=== PATIENT | female | born 2005 | race Caucasian/White ===

== ENCOUNTER 2024-09-29 06:19 | Emergency (ER) | payer BC, SELFPAY ==
[2024-09-29 06:20] VITALS: BP 126/89; PULSE 67; RESP 67; TEMP 36.7; O2SAT 100; BMI 32.5
--- NOTE | 2024-09-29 06:26 | CT_ITS ---
FINAL REPORT TECHNIQUE: After the administration of oral and intravenous contrast, axial images were obtained through the abdomen and pelvis by computed tomography. The study was performed with techniques to keep radiation dose as low as reasonably achievable, (ALARA). Individual dose reduction techniques using automated exposure control or adjustment of mA and/or kV according to the patient's size were employed. CLINICAL HISTORY: low abd and low back pain COMPARISON: None FINDINGS: Abdomen: The lung bases are clear. The liver parenchyma is homogeneous. The gallbladder is present. The spleen, pancreas, and adrenals appear unremarkable. There is mild to moderate right hydronephrosis, with a 2 mm obstructing stone at the right UPJ. The aorta is normal in caliber. There is no free fluid or adenopathy. Pelvis: The appendix is not identified. The urinary bladder is incompletely distended. The uterus is anteverted. Small ovarian cysts or follicles are noted. There is no free fluid or adenopathy. IMPRESSION: Mild to moderate right hydronephrosis with a 2 mm obstructing stone at the right UPJ. Reviewed, Interpreted and Dictated by Murali Knott MD Transcribed by Navya Valenzuela Authenticated and [facility]
--- NOTE | 2024-09-29 06:31 | HMH.EDGENADL ---
Discharge Plan Disposition Patient Disposition: Home, Self-Care Prescriptions Prescriptions: New ibuprofen 800 mg tablet 800 mg PO TID PRN (Reason: pain) 7 Days Qty: 20 0RF hydrocodone-acetaminophen 5-325 mg tablet 1 tab PO Q6H PRN (Reason: pain) 3 Days Qty: 12 0RF tamsulosin [Flomax] 0.4 mg capsule 0.4 mg PO DAILY 7 Days Qty: 7 0RF ondansetron 4 mg tablet,disintegrating 4 mg PO Q6H PRN (Reason: nausea and vomiting) 5 Days Qty: 20 0RF Referrals Follow up/Referrals: Iban Baeza MD [Primary Care Provider] - See instructions Activity Restrictions/Add. Instructions Additional Instructions/Restrictions: You have a 2 mm right sided proximal and obstructing kidney stone this is most likely a pass given size. No evidence of an infection or sepsis. Return with refractory pain or high fevers you may follow-up with urology if you would like but that should pass on its own. Clinical Impressions Clinical Impression: Hydronephrosis concurrent with and due to calculi of kidney and ureter, Lower abdominal pain, Low back pain, Nausea & vomiting Print Language Print Language: Togolese Discharge ED Provider: Bing Berrios General Adult HPI <Bing Berrios MD - Last Filed: 09/29/24 07:02> General Chief complaint: Nausea/Vomiting/Diarrhea Stated complaint: abd, back pain, nausea, vomiting Time Seen by Provider: 09/29/24 06:21 Mode of Arrival: Ambulatory Source of Information: Patient Limitations: No Limitations Description of Symptoms (Recalled from ER Triage Doc. by RN): PT C/O NV, LOWER ABD PAIN STARTING AT 0430 THIS AM. History of Present Illness HPI narrative: 19-year-old female presents to the ER with 2 hours of lower abdominal and lower back pain as well as nausea and vomiting. Symptoms started around 430 this morning. She denies fevers, chills, numbness, tingling, weakness, dysuria, hematuria. She has not yet passed urine this morning. Mom and patient report a family history of kidney stones but patient does not know of ever having 1. Patient reports no diarrhea. She reports that her pain is in the very low abdomen and indicates in the suprapubic area, she also indicates to her very low back, bilateral. She denies having pain affecting 1 side more than the other. Reportedly mom gave a pain pill at home prior to arrival but patient vomited this up. Related Data Previous Rx's ?Medication ?Instructions ?Recorded hydrocodone 5 mg-acetaminophen 325 1 tab PO Q6H PRN pain 3 days #12 09/29/24 mg tablet tabs ibuprofen 800 mg tablet 800 mg PO TID PRN pain 7 days #20 09/29/24 tabs ondansetron 4 mg disintegrating 4 mg PO Q6H PRN nausea and 09/29/24 tablet vomiting 5 days #20 tabs tamsulosin 0.4 mg capsule (Flomax) 0.4 mg PO DAILY 7 days #7 caps 09/29/24 Allergies Allergy/AdvReac Type Severity Reaction Status Date / Time No Known Allergies Allergy Verified 09/29/24 06:32 [facility] <Bing Berrios MD - Last Filed: 09/29/24 07:02> [facility] Disclaimer: The information contained in this section may have been updated after the patient was seen, as this information can be updated by other users. Social History (Updated 09/29/24 @ 07:02 by Bing Berrios MD) Smoking Status: Never smoker alcohol intake: never current occupational status: other Travel in the last 8 weeks: None Have you lived/traveled outside [place] in past 30 days?: No Contact w/someone who lives/traveled outside [place] past 30 days?: No Exposure to someone with infectious disease in past 14 days?: No Do you have a fever (greater than 100.4 F or 38 C)?: No Have you tested positive for COVID-19: No Exposed to someone with COVID-19 in past 14 days?: No Do you have a sore throat?: No Do you have a cough?: No Do you have any weakness?: No Do you have any diarrhea?: No Are you experiencing any unusual bleeding?: No Do you have any muscle aches/pain?: Yes Do you have any abdominal pain?: Yes Are you experiencing loss of taste or smell?: No <Bing Berrios MD - Last Filed: 09/29/24 07:02> ROS Obtained: Yes Systems reviewed as appropriate & no additional complaints except as documented Per HPI Physical Exam <Bing Berrios MD - Last Filed: 09/29/24 07:02> General General appearance: alert and in no apparent distress Comment: Appears uncomfortable but not in distress, nontoxic-appearing Head Head exam: atraumatic and normocephalic Eye Eye exam: Present PERRL and EOMI ENT ENT exam: Present mucous membranes moist Neck Neck exam: Present normal inspection and full ROM Chest Chest inspection: Present symmetric chest wall rise Respiratory Respiratory exam: Present normal lung sounds bilaterally; Absent respiratory distress, wheezes or stridor Cardiovascular Cardiovascular exam: Present regular rate and normal rhythm Abdominal Exam Abdominal exam: Present soft; Absent distention, tenderness, guarding or rebound Comment: Patient reports suprapubic pain but this is not elicited or worsened with palpation Extremities Exam Extremities exam: Present full ROM Back Exam Back exam: Absent CVA tenderness (R) or CVA tenderness (L) Neurological Exam Neurological exam: Present alert and oriented X3; Absent motor sensory deficit Psychiatric Psychiatric exam: Present normal affect and normal mood Skin Skin exam: Present warm and dry Medical Decision Making <Bing Berrios MD - Last Filed: 09/29/24 07:02> Medical Records Screening: Per USPSTF and CDC recommendations, given the prevalence of disease in our region, it is our hospital?s policy to screen for HIV and viral Hepatitis for all patients aged 18 and over and those with ongoing risk factors. John Inquiry Pt receiving controlled substance: No Vital Signs: 09/29/24 06:20 09/29/24 07:40 09/29/24 07:59 Temperature 98.0 F Temperature Source Oral Pulse Rate 79 86 Pulse Rate [Apical] 67 Respiratory Rate 67 H Blood Pressure 118/74 112/77 Blood Pressure [Right Arm] 126/89 Blood Pressure Mean [Right Arm] 101 02 Sat by Pulse Oximetry 100 94 L 95 Oxygen Delivery Method Room Air Room Air 09/29/24 08:30 Temperature Temperature Source Pulse Rate 74 Pulse Rate [Apical] Respiratory Rate Blood Pressure 118/78 Blood Pressure [Right Arm] Blood Pressure Mean [Right Arm] 02 Sat by Pulse Oximetry 100 Oxygen Delivery Method Room Air Lab Data Lab Results 09/29/24 06:35: WBC 13.4 H, RBC 5.17, Hgb 15.8, Hct 46.0, MCV 89.0, MCH 30.6, MCHC 34.3, RDW 11.7, Plt Count 325, MPV 12.1 H, Neut % (Auto) 68.5, Lymph % (Auto) 23.0, [place] % (Auto) 6.8, Eos % (Auto) 1.0, Baso % (Auto) 0.4, Neut # (Auto) 9.2 H, Lymph # (Auto) 3.1, [place] # (Auto) 0.9, Eos # (Auto) 0.1, Baso # (Auto) 0.1, PT 10.4, INR 0.94, Sodium 141, Potassium 3.8, Chloride 102, Carbon Dioxide 28, Anion Gap 14.8, BUN 18 H, Creatinine 1.10 H, Estimated Creat Clear 129, Estimated GFR 63, Est GFR ( Amer) 77, Glucose 136 H, Calcium 9.5, Total Bilirubin 0.6, AST 33, ALT 28, Alkaline Phosphatase 65, Total Protein 7.4, Albumin 4.7, Globulin 2.7, Albumin/Globulin Ratio 1.7, Lipase 70, Serum HCG, Qual Negative 09/29/24 08:04: Urine Color Yellow, Urine Appearance Clear, Urine pH 7.0, Ur Specific [place] 1.010, Urine Protein Negative, Urine Glucose (UA) Negative, Urine Ketones Negative, Urine Blood 3+ A, Urine Nitrate Negative, Urine Bilirubin Negative, Urine Urobilinogen 0.2, Ur Leukocyte Esterase Negative 09/29/24 06:35 09/29/24 06:35 Orders (Tests/Meds): ED MEDICATIONS Generic Name Dose Route Start Last Admin Trade Name Freq PRN Reason Stop Dose Admin Morphine Sulfate 4 mg 09/29/24 06:45 Morphine 4mg/Ml Syringe IV 10/29/24 06:44 Q2HP PRN Severe Pain (7-10) Discontinued Medications Generic Name Dose Route Start Last Admin Trade Name Freq PRN Reason Stop Dose Admin Acetaminophen 1,000 mg 09/29/24 06:35 09/29/24 06:40 Acetaminophen 1,000mg/100ml Vial IV 09/29/24 06:36 1,000 mg ONCE ONE Administration Lactated Ringer's 1,000 mls @ 999 mls/hr 09/29/24 06:26 09/29/24 06:40 Lactated Ringer's 1000 Ml Bag IV 09/29/24 07:26 999 mls/hr .Q1H1M ONE Administration Iopamidol 75 ml 09/29/24 07:19 09/29/24 07:20 Iopamidol-370 (76%);100ml Bottle IV 09/29/24 07:20 75 ml ONCE ONE Administration Ketorolac Tromethamine 30 mg 09/29/24 06:26 09/29/24 06:40 Ketorolac 30mg/Ml Vial IV 09/29/24 06:27 30 mg ONCE ONE Administration Ondansetron HCl 4 mg 09/29/24 06:35 09/29/24 06:40 Ondansetron 4mg/2ml Vial IV 09/29/24 06:36 4 mg ONCE ONE Administration Sodium Chloride 10 ml 09/29/24 07:19 09/29/24 07:20 Sodium Chloride 0.9% 10ml Syr (Rad Only) IV 09/29/24 07:20 10 ml ONCE ONE Administration ORDERS Category Date Time Status CT abdomen pelvis w con Stat Cat Scan 09/29/24 06:26 Taken Complete Blood Count Auto Diff Stat Lab 09/29/24 06:35 Completed Comprehensive Metabolic Panel Stat Lab 09/29/24 06:35 Completed HCG Qualitative, Serum Stat Lab 09/29/24 06:35 Completed Lipase Stat Lab 09/29/24 06:35 Completed Prothrombin Time INR Stat Lab 09/29/24 06:35 Completed Urinalysis and Microscopic Stat Lab 09/29/24 08:04 Results Medical Decision Narrative: In summary, this 19-year-old female with no known chronic medical conditions presents to the emergency department today with low back pain, low abdominal pain, nausea, vomiting for the last 2 hours. On initial evaluation patient is hemodynamically stable, afebrile, no tenderness is elicited on exam of the abdomen, no CVA tenderness, unable to reproduce patient's pain, she appears uncomfortable but nontoxic, remainder of exam benign. Differential diagnosis includes but is not limited to viral syndrome, appendicitis, nephrolithiasis, ureterolithiasis, hydronephrosis, UTI, pyelonephritis, colitis, torsion, . Torsion is considered slightly less likely right now since patient has midline pain and a nontender abdomen. Will workup other potential pathology first. Based on these concerns, I ordered serum labs, test, urine studies, CT imaging. Patient initially received Toradol, Tylenol, IV fluids, Zofran for symptomatic management. PRN morphine ordered if conservative treatment is not effective. She attempted to urinate on arrival but was unable to void. Patient is going to receive IV fluids and try again. Labs reviewed by me demonstrate leukocytosis WBC 13.4 with neutrophil predominance which increases suspicion for possible infectious etiology. No anemia, platelets normal. CMP with mild kidney dysfunction, BUN 18, creatinine 1.1. No actionable electrolyte abnormalities. Patient is already receiving IV fluids. Lipase normal. Patient handed off to Dr. Simon in stable condition pending further serum labs, urine, and imaging analysis. <Devon Simon MD - Last Filed: 09/29/24 08:58> Vital Signs: 09/29/24 06:20 09/29/24 07:40 09/29/24 07:59 Temperature 98.0 F Temperature Source Oral Pulse Rate 79 86 Pulse Rate [Apical] 67 Respiratory Rate 67 H Blood Pressure 118/74 112/77 Blood Pressure [Right Arm] 126/89 Blood Pressure Mean [Right Arm] 101 02 Sat by Pulse Oximetry 100 94 L 95 Oxygen Delivery Method Room Air Room Air 09/29/24 08:30 Temperature Temperature Source Pulse Rate 74 Pulse Rate [Apical] Respiratory Rate Blood Pressure 118/78 Blood Pressure [Right Arm] Blood Pressure Mean [Right Arm] 02 Sat by Pulse Oximetry 100 Oxygen Delivery Method Room Air Lab Data Lab results reviewed: Yes I reviewed the patient's lab results. Lab Results 09/29/24 06:35: WBC 13.4 H, RBC 5.17, Hgb 15.8, Hct 46.0, MCV 89.0, MCH 30.6, MCHC 34.3, RDW 11.7, Plt Count 325, MPV 12.1 H, Neut % (Auto) 68.5, Lymph % (Auto) 23.0, [place] % (Auto) 6.8, Eos % (Auto) 1.0, Baso % (Auto) 0.4, Neut # (Auto) 9.2 H, Lymph # (Auto) 3.1, [place] # (Auto) 0.9, Eos # (Auto) 0.1, Baso # (Auto) 0.1, PT 10.4, INR 0.94, Sodium 141, Potassium 3.8, Chloride 102, Carbon Dioxide 28, Anion Gap 14.8, BUN 18 H, Creatinine 1.10 H, Estimated Creat Clear 129, Estimated GFR 63, Est GFR ( Amer) 77, Glucose 136 H, Calcium 9.5, Total Bilirubin 0.6, AST 33, ALT 28, Alkaline Phosphatase 65, Total Protein 7.4, Albumin 4.7, Globulin 2.7, Albumin/Globulin Ratio 1.7, Lipase 70, Serum HCG, Qual Negative 09/29/24 08:04: Urine Color Yellow, Urine Appearance Clear, Urine pH 7.0, Ur Specific [place] 1.010, Urine Protein Negative, Urine Glucose (UA) Negative, Urine Ketones Negative, Urine Blood 3+ A, Urine Nitrate Negative, Urine Bilirubin Negative, Urine Urobilinogen 0.2, Ur Leukocyte Esterase Negative Orders (Tests/Meds): ED MEDICATIONS Generic Name Dose Route Start Last Admin Trade Name Freq PRN Reason Stop Dose Admin Morphine Sulfate 4 mg 09/29/24 06:45 Morphine 4mg/Ml Syringe IV 10/29/24 06:44 Q2HP PRN Severe Pain (7-10) Discontinued Medications Generic Name Dose Route Start Last Admin Trade Name Freq PRN Reason Stop Dose Admin Acetaminophen 1,000 mg 09/29/24 06:35 09/29/24 06:40 Acetaminophen 1,000mg/100ml Vial IV 09/29/24 06:36 1,000 mg ONCE ONE Administration Lactated Ringer's 1,000 mls @ 999 mls/hr 09/29/24 06:26 09/29/24 06:40 Lactated Ringer's 1000 Ml Bag IV 09/29/24 07:26 999 mls/hr .Q1H1M ONE Administration Iopamidol 75 ml 09/29/24 07:19 09/29/24 07:20 Iopamidol-370 (76%);100ml Bottle IV 09/29/24 07:20 75 ml ONCE ONE Administration Ketorolac Tromethamine 30 mg 09/29/24 06:26 09/29/24 06:40 Ketorolac 30mg/Ml Vial IV 09/29/24 06:27 30 mg ONCE ONE Administration Ondansetron HCl 4 mg 09/29/24 06:35 09/29/24 06:40 Ondansetron 4mg/2ml Vial IV 09/29/24 06:36 4 mg ONCE ONE Administration Sodium Chloride 10 ml 09/29/24 07:19 09/29/24 07:20 Sodium Chloride 0.9% 10ml Syr (Rad Only) IV 09/29/24 07:20 10 ml ONCE ONE Administration ORDERS Category Date Time Status CT abdomen pelvis w con Stat Cat Scan 09/29/24 06:26 Taken Complete Blood Count Auto Diff Stat Lab 09/29/24 06:35 Completed Comprehensive Metabolic Panel Stat Lab 09/29/24 06:35 Completed HCG Qualitative, Serum Stat Lab 09/29/24 06:35 Completed Lipase Stat Lab 09/29/24 06:35 Completed Prothrombin Time INR Stat Lab 09/29/24 06:35 Completed Urinalysis and Microscopic Stat Lab 09/29/24 08:04 Results Medical Decision Narrative: In summary, this 19-year-old female with no known chronic medical conditions presents to the emergency department today with low back pain, low abdominal pain, nausea, vomiting for the last 2 hours. On initial evaluation patient is hemodynamically stable, afebrile, no tenderness is elicited on exam of the abdomen, no CVA tenderness, unable to reproduce patient's pain, she appears uncomfortable but nontoxic, remainder of exam benign. Differential diagnosis includes but is not limited to viral syndrome, appendicitis, nephrolithiasis, ureterolithiasis, hydronephrosis, UTI, pyelonephritis, colitis, torsion, . Torsion is considered slightly less likely right now since patient has midline pain and a nontender abdomen. Will workup other potential pathology first. Based on these concerns, I ordered serum labs, test, urine studies, CT imaging. Patient initially received Toradol, Tylenol, IV fluids, Zofran for symptomatic management. PRN morphine ordered if conservative treatment is not effective. She attempted to urinate on arrival but was unable to void. Patient is going to receive IV fluids and try again. Labs reviewed by me demonstrate leukocytosis WBC 13.4 with neutrophil predominance which increases suspicion for possible infectious etiology. No anemia, platelets normal. CMP with mild kidney dysfunction, BUN 18, creatinine 1.1. No actionable electrolyte abnormalities. Patient is already receiving IV fluids. Lipase normal. Patient handed off to Dr. Simon in stable condition pending further serum labs, urine, and imaging analysis. Reassessment this is Dr. Simon I took over from Dr. Berrios around 7 AM pending labs and CT scan. Labs unremarkable including urinalysis which does not show any evidence of an infection. Reassessment clinically of the patient she is very well-appearing and symptoms are controlled. CT scan was performed which I personally interpreted which shows moderate hydronephrosis on the right side with a proximal 2 mm obstructing kidney stone. Symptomatic medications given to the patient she has been told this most likely will pass on its own she was given a urine strainer and advised that if she has a high fever or refractory symptoms to return or follow-up with urology. Critical Care <Bing Berrios MD - Last Filed: 09/29/24 07:02> Critical Care Time Critical Care Time: No
[2024-09-29] MEDS: LACTATED RINGERS 1000ML 1,000 ML 999 ML IV (06:40)
[2024-09-29] MEDS: ONDANSETRON 4MG/2ML VIAL 4 MG IV (06:40)
[2024-09-29] MEDS: ACETAMINOPHEN 1,000MG/100ML VIAL 1000 MG IV (06:40)
[2024-09-29] MEDS: KETOROLAC 30MG/ML VIAL 30 MG IV (06:40)
[2024-09-29 06:45] LABS: Basophils # 0.1 K/mm3 (0-0.2); Basophils % 0.4 % (0.1-2.0); Eosinophils # 0.1 K/mm3 (0.0-0.4); Hemoglobin 15.8 g/dL (12.2-16.2); Lymphocytes # 3.1 K/mm3 (0.7-4.5); Mean Corpuscular HGB Conc 34.3 g/dL (31.8-35.4); Mean Corpuscular Hemoglobin 30.6 pg (27.0-31.2); Mean Platelet Volume 12.1 fl (7.4-10.4); Monocytes # 0.9 K/mm3 (0.1-1.0); Monocytes % 6.8 % (1.7-9.3); Neutrophils # 9.2 K/mm3 (1.8-7.8); Neutrophils % 68.5 % (37.0-80.0); Platelet Count 325 K/mm3 (142-424); Red Blood Count 5.17 M/mm3 (4.20-5.40); Red Cell Distribution Width 11.7 % (11.5-17.5); White Blood Count 13.4 K/mm3 (4.5-13.0)
[2024-09-29 06:57] LABS: Alanine Aminotransferase 28 U/L (12-78); Albumin Level 4.7 g/dl (3.5-5.0); Albumin/Globulin Ratio 1.7 (1.1-1.8); Alkaline Phosphatase 65 U/L (38-126); Anion Gap 14.8 mEq/L (5-15); Aspartate Amino Transferase 33 U/L (14-36); Bilirubin,Total 0.6 mg/dl (0.2-1.3); Blood Urea Nitrogen 18 mg/dl (7-17); Calcium 9.5 mg/dl (8.4-10.2); Carbon Dioxide 28 mmol/L (22.0-30.0); Chloride 102 mmol/L (98-107); Creatinine Clearance Estimated 129 mL/min (50-200); Estimated Glomerular Filt Rate 63 ml/min (>60); GFR (African American) 77 ML/MIN (>60); Globulin 2.7 g/dL (1.3-3.2); Glucose 136 mg/dl (74-100); INR 0.94 (0.9-1.1); Lipase 70 U/L (23-300); Potassium 3.8 mmoL/L (3.5-5.1); Prothrombin Time 10.4 seconds (9.2-12.1); Sodium 141 mmol/L (136-145); Total Protein,Serum 7.4 g/dl (6.3-8.2)
[2024-09-29 07:08] LABS: HCG Qualitative, Serum Negative (Negative)
[2024-09-29] MEDS: SODIUM CHLORIDE 0.9% 10ML SYR (RAD ONLY) 10 ML IV (07:20)
[2024-09-29] MEDS: IOPAMIDOL-370 (76%);100ML BOTTLE 75 ML IV (07:20)
[2024-09-29 07:40] VITALS: BP 118/74; PULSE 79; O2SAT 94
[2024-09-29 07:59] VITALS: BP 112/77; PULSE 86; O2SAT 95
[2024-09-29 08:10] LABS: Microscopic, Urine URINE MICROSCOPIC (MICROSCOPIC)
--- NOTE | 2024-09-29 08:10 | PC.NURSE ---
Called nghia to courtneyk on the ct read, states it it locked in read mode now.
--- NOTE | 2024-09-29 08:20 | PC.NURSE ---
Rounded on pt and updated her that we are waiting for her CT scan to be read and it is locking in reading mode now. No other needs at this time. Call light within reach.
[2024-09-29 08:25] LABS: Appearance,Urine CLEAR (Clear); Bilirubin,Urine Negative (Negative); Blood, Urine 3+ (Negative); Color,Urine YELLOW (Yellow); Glucose,Urine (UA) Negative (Negative); Ketones,Urine Negative (Negative); Leukocyte Esterase,Urine Negative (Negative); Nitrate,Urine Negative (Negative); Protein,Urine Negative (Negative); Urobilinogen,Urine 0.2 EU/dl (0.2)
[2024-09-29 08:30] VITALS: BP 118/78; PULSE 74; O2SAT 100
[2024-09-29 08:59] VITALS: BP 110/75; PULSE 85; O2SAT 95
--- NOTE | 2024-09-29 09:00 | PC.NURSE ---
Dr. Simon at bedside s/w pt and parent regarding results, d/c, and follow up.
[2024-09-29 09:07] LABS: Bacteria,Urine Trace /lpf; RBC,Urine TNTC #/hpf (0-3); Squamous Epithelial Cell,Urine Occasional #/hpf (0-5)
[2024-09-29 09:15] VITALS: BP 110/75; PULSE 87; RESP 20; TEMP 36.6; O2SAT 98
== END 2024-09-29 09:16 | disposition home or self-care (01) ==
PROVIDERS: Emergency Provider Emergency Medicine; PCP Family Medicine
DX: N13.2 Hydronephrosis with renal and ureteral calculous obstruction (principal); R11.2 Nausea with vomiting, unspecified; R10.30 Lower abdominal pain, unspecified; M54.50 Low back pain, unspecified
CPT/HCPCS: 74177; 80053; 81001; 83690; 84703; 85025; 85610; 96361; 96374; 96375; 99285; J0131; J1885; J2405; J7120; Q9967